=== PATIENT | male | born 1950 | race Two or more races ===

== ENCOUNTER 2024-10-30 20:59 | Inpatient (IN) | payer MEDICARE, OTHER ==
[~2024-10-30] VITALS: Ht 172.7 cm; Wt 90.7 kg
[2024-10-30] MEDS ORDERED: AMIODARONE 150 MG/3 ML VIAL IV ONE ×2 (21:23→21:45)
[2024-10-30] MEDS: AMIODARONE 150 MG in IV D5W 100 ML IV ONE (21:30)
[2024-10-30 21:34] LABS: PLATELET COUNT (AUTO) 205 K/uL (150-450); RED BLOOD CELL COUNT(AUTO) 5.14 MIL/uL (4.5-6.0); RED CELL DISTRIBUTION WIDTH 13.7 % (11.5-15.0); WHITE BLOOD COUNT (AUTO) 10.3 K/uL (4.3-11.0)
[2024-10-30 21:37] LABS: CALCIUM, SERUM 9.5 mg/dL (8.5-10.1); CREATININE 1.2 mg/dL (0.6-1.3); SODIUM SERUM 141 mmol/L (136-145); UREA NITROGEN, BLOOD 22 mg/dL (7-18)
[2024-10-30 21:49] LABS: NT-PRO BNP 87 pg/mL (0-125)
[2024-10-30] MEDS ORDERED: RIVA10TA PO (21:59)
[2024-10-30] MEDS: AMIODARONE 450 MG in IV D5W 250 ML IV ONE (22:02)
[2024-10-30] MEDS: AMIODARONE 450 MG in IV D5W 241 ML IV PRN (22:02)
[2024-10-30] MEDS: IV NS 0.9% 1,000 ML BAG IV ONE (22:49)
[2024-10-30] MEDS ORDERED: ASPIRIN 81 MG TAB.CHEW ONE (22:58)
[2024-10-30] MEDS: ASPIRIN 81 MG TAB.CHEW PO ONE (22:59)
[2024-10-30] MEDS ORDERED: ONDANSETRON HCL/PF 4 MG/2 ML VIAL IVP PRN (23:30)
[2024-10-30] MEDS ORDERED: MAGNESIUM HYDROXIDE 30 ML UDC PO PRN (23:30)
[2024-10-30] MEDS ORDERED: MAG HYDROX/AL HYDROX/SIMETH 30 ML UDC PO PRN (23:30)
[2024-10-31] VITALS (7 sets, daily range): BP systolic 97–116; BP diastolic 66–74; TEMP 97.4–97.8; O2SAT 94–98
[2024-10-31] MEDS: IV NS 0.9% 1,000 ML IV SCH (01:02)
[2024-10-31] MEDS: AMIODARONE 150 MG/3 ML VIAL IV ONE (02:54)
[2024-10-31 07:37] LABS: PLATELET COUNT (AUTO) 181 K/uL (150-450); RED BLOOD CELL COUNT(AUTO) 4.62 MIL/uL (4.5-6.0); RED CELL DISTRIBUTION WIDTH 13.9 % (11.5-15.0); WHITE BLOOD COUNT (AUTO) 7.0 K/uL (4.3-11.0)
[2024-10-31 07:46] LABS: CALCIUM, SERUM 8.7 mg/dL (8.5-10.1); CREATININE 1.3 mg/dL (0.6-1.3); PHOSPHORUS 3.9 mg/dL (2.5-4.9); SODIUM SERUM 146.0 mmol/L (136-145); UREA NITROGEN, BLOOD 20.0 mg/dL (7-18)
[2024-10-31] MEDS: RIVAROXABAN 10 MG TABLET PO SCH (08:26)
[2024-10-31] MEDS: PANTOPRAZOLE 40 MG TABLET.DR PO SCH (08:27)
[2024-10-31] MEDS: ASPIRIN EC 81 MG TABLET.DR PO SCH (08:27)
[2024-10-31] MEDS: ACETAMINOPHEN 325 MG TABLET PO PRN (12:19)
[2024-10-31] MEDS: IV NS 0.9% 1,000 ML IV PRN (16:06)
[2024-10-31] MEDS: AMIODARONE HCL 200 MG TABLET PO SCH (21:00)
[2024-10-31] MEDS: ATORVASTATIN 40 MG TABLET PO SCH (21:56)
[2024-10-31] MEDS: DONEPEZIL 5 MG TABLET PO SCH (21:57)
[2024-11-01] VITALS: BP 105/67; TEMP 97.8; O2SAT 97
[2024-11-01 04:00] VITALS: BP 114/68; TEMP 97.8; O2SAT 96
[2024-11-01 07:49] LABS: CALCIUM, SERUM 9.1 mg/dL (8.5-10.1); CREATININE 1.1 mg/dL (0.6-1.3); SODIUM SERUM 145.0 mmol/L (136-145); UREA NITROGEN, BLOOD 17.0 mg/dL (7-18)
[2024-11-01 08:00] VITALS: BP 130/91; TEMP 97.5; O2SAT 100
== END 2024-11-01 16:02 | disposition home or self-care (01) | DRG 282 ==
LOC: ER 21:04 → ICUOV 10-31 00:05 → TELE-TD 10-31 01:04 → TELE1 11-01 08:10
PROVIDERS: ADMIT Registered Nurse Psychiatric/Mental Health; ATTEND Internal Medicine
DX: I48.91 Unspecified atrial fibrillation (principal); I21.A1 Myocardial infarction type 2; E78.5 Hyperlipidemia, unspecified; I10 Essential (primary) hypertension; I25.10 Atherosclerotic heart disease of native coronary artery without angina pectoris; Z95.5 Presence of coronary angioplasty implant and graft; Z79.01 Long term (current) use of anticoagulants; Z79.899 Other long term (current) drug therapy; Z91.148 Patient's other noncompliance with medication regimen for other reason; R79.89 Other specified abnormal findings of blood chemistry; Z87.442 Personal history of urinary calculi
CPT/HCPCS: 36415; 71045-TC; 80048-TC; 83735-TC; 83880; 84100-TC; 84443-TC; 84484-TC; 85025-TC; A4223; G0378; J0282; J7030; J7060